=== PATIENT | female | born 1950 | race Caucasian/White ===

== ENCOUNTER → 2019-06-22 | Outpatient (CLI) | payer OTHER ==
[~2019-06-22] VITALS: Ht 167.6 cm; Wt 124.3 kg
[~2019-06-22] MED LIST: ASPIR 8181 MG PO; LEVOXYL175 MCG PO; LIPITOR 20 MG T20 M1 PO; MAXZIDE-25 MG1 EACH PO; METFORMIN HCL500 MG PO; NAPROSYN500 MG PO; NEURONTIN 300300 M1 PO; NOVOLOG100 UNIT/1 SUBQ; PRILOSEC OTC20 MG PO; QUINU10 PD PO; TRESIBA FL100 UNIT/1 SUBQ; TYLENOL PM EX-1 EACH PO; VICTOZA0.6 MG/0.1 SUBQ; VITAMIN D-32000 UNIT PO
[2019-06-22 09:21] LABS: HEMATOCRIT 40.5 % (37.0-47.0); HEMOGLOBIN 12.8 gm/dL (12.0-15.0); MCH 27.6 pg (26.0-34.0); MCHC 31.7 g/dL (28.0-37.0); MCV 87.1 fL (80.0-100.0); RBC 4.65 mil/uL (4.20-5.00); RDW 16.4 % (10.5-14.5); WBC 9.6 thou/uL (4.0-11.0)
[2019-06-22 09:25] LABS: URINE BILIRUBIN NEGATIVE (Negative); URINE BLOOD TRACE (Negative); URINE CLARITY CLEAR; URINE COLOR YELLOW; URINE GLUCOSE-RANDOM* NEGATIVE (Negative); URINE KETONES NEGATIVE (Negative); URINE LEUKOCYTES-REFLEX 1+ (Negative); URINE NITRITE-REFLEX POSITIVE (Negative); URINE PROTEIN (DIPSTICK) NEGATIVE (Negative); URINE SPECIFIC GRAVITY 1.015 (1.005-1.035); URINE UROBILINOGEN 0.2 E.U./dl (0.2-1.0)
[2019-06-22 09:31] LABS: SQUAMOUS 0-3 Few /LPF (0-3)
[2019-06-22 09:32] LABS: BACTERIA-REFLEX >30 Many /HPF (None Seen); CASTS None Seen /LPF (None Seen); CRYSTALS None Seen /LPF (None Seen); PROTIME 10.3 Seconds (9.3-11.4); URINE RBC None Seen /HPF (0-2); URINE WBC-REFLEX 6-15 Few /HPF (0-5)
[2019-06-22 09:33] LABS: ALBUMIN 3.6 g/dL (3.4-5.0); CALCIUM 9.2 mg/dL (8.5-10.1); CREATININE 1.2 mg/dL (0.6-1.0); POTASSIUM 4.6 mmol/L (3.5-5.1)
[2019-06-23 01:10] LABS: GLYCOHEMOGLOBIN (HGB A1C) 7.7 % (4.8-5.6)
--- NOTE | 2019-06-24 13:26 | EKG ---
[address] [place] [address] ELECTROCARDIOGRAM REPORT Name: NOEMÍ LEMON Room #: PRE IN ..#: [id number] Admission: Attend Phys: Roby Velásquez MD Discharge: Date of : 52 Report #: [id number] THIS REPORT FOR: //name// [facility] Test Date: 2019-06-22 Test Time: 08:54:43 Pat Name: NOEMÍTAMAR LEMON Department: Room: Gender: F Manager Baby: Ana Lilia MARIN : 1950 Requested By: Roby Velásquez Order Number: [id number] MD: Timmy Power Measurements Intervals [place] Rate: 91 P: 64 KS: 178 QRS: -39 QRSD: 120 T: 58 QT: 385 QTc: 474 Interpretive Statements Sinus rhythm Nonspecific IVCD with LAD Left ventricular hypertrophy Anterior Q waves, possibly due to LVH No previous ECG available for comparison Electronically Signed On 06-24-2019 13:26:05 CDT by Timmy Power [email or web address] <ELECTRONICALLY SIGNED> By: Timmy Power MD 06/24/19 1326 D: [id number] Timmy Power MD /GOLDY
[2019-06-29 11:32] VITALS: BP 114/67
== END | disposition home or self-care (01) ==
LOC: PRE 08:00 → TBA 08:00 → PAC 12:30 → PRE 06-29 08:11 → TBA 06-29 10:15 → PRE 06-29 10:15 → PAC 06-29 12:30 → EDSTATUS 06-29 13:03 → PRE 06-29 13:32
PROVIDERS: Orthopaedic Surgery
DX: M17.12 Unilateral primary osteoarthritis, left knee (principal); M25.562 Pain in left knee; I10 Essential (primary) hypertension; E78.5 Hyperlipidemia, unspecified; E11.9 Type 2 diabetes mellitus without complications; K21.9 Gastro-esophageal reflux disease without esophagitis; Z79.4 Long term (current) use of insulin; Z79.899 Other long term (current) drug therapy; Z85.850 Personal history of malignant neoplasm of thyroid; Z53.8 Procedure and treatment not carried out for other reasons; Z91.040 Latex allergy status; Z79.01 Long term (current) use of anticoagulants; Z98.890 Other specified postprocedural states
CPT/HCPCS: 50010

== ENCOUNTER 2019-07-12 05:46 | Inpatient (IN) | payer OTHER ==
[~2019-07-12] VITALS: Ht 167.6 cm; Wt 123.4 kg
[2019-07-12] VITALS (9 sets, daily range): BP systolic 120–155; BP diastolic 62–75
[~2019-07-12 05:46] MED LIST changes: -ASPIR 8181 MG PO; -NEURONTIN 300300 M1 PO
--- NOTE | 2019-07-12 18:24 | NUR ---
Pt came to unit from PACU approx 1045. Post-op left total knee. Pain controlled with prn pain meds. ESHA hose and SCD in place. Polar pack in place. Pt worked with physical therapy today. Pt home insulin taken down to pharmacy for verification. Pt states she took her home novolog for lunch. Education given. Pt home meds in EMar. Fluids and antibiotics infusing. Hospital doctor consulted. Weight bearing as tolerated. Call light within reach. Will continue to monitor.
--- NOTE | 2019-07-13 02:44 | NUR ---
ASSESSMENT COMPLETED AT THE START OF SHIFT. POST OP DAY ZERO S/P L TKR. PT HAS POLAR MAGALYS, HUSSAIN AND TEDS IN PLACE. PT ABLE TO GET TO THE BSC WITH ASSIST X 1. VOIDING OK. PT C/O SOME HEADACHE AND SORE THROAT AT BOUT BEDTIME. HS MEDS GIVEN INCLUDING ANALGESICS AND PT APPEARS TO HAVE RECEIVED SOME RELIEF. FEBRILE-THEREFORE GIVEN SOME TYLENOL. PT REMAINS ON ROOM AIR. ENCOURAGED TO USE I/S AVAILABLE BY BEDSIDE.CALLS WITH NEEDS. WILL CONTINUE WITH POC TILL EOS.
[2019-07-13 05:27] VITALS: BP 91/49
[2019-07-13 05:28] LABS: HEMATOCRIT 32.6 % (37.0-47.0); HEMOGLOBIN 10.3 gm/dL (12.0-15.0); MCH 28.1 pg (26.0-34.0); MCHC 31.7 g/dL (28.0-37.0); MCV 88.5 fL (80.0-100.0); RBC 3.68 mil/uL (4.20-5.00); RDW 16.3 % (10.5-14.5); WBC 9.1 thou/uL (4.0-11.0)
--- NOTE | 2019-07-13 14:41 | NUR ---
INITIAL ASSESSMENT: Pt evaluated for d/c planning needs. Reviewed chart and spoke with PT, pt and nurse. Pt is alert and oriented. Pt lives alone in house and was independent with ADL's prior to admission to the hospital. Pt has cane at home, and has not had home health in the past. Pt plans on staying with her SO on d/c from hospital and has outpatient PT arranged to begin on Thursday. Pt requires walker for home use. Faxed order for walker to [facility] and they will deliver prior to d/c. Will remain available to assist as needed.
[2019-07-13] MEDS ORDERED: ASPIR 8181 MG PO (14:53)
[2019-07-13] MEDS ORDERED: NEURONTIN 300300 M1 PO (14:53)
[2019-07-13 18:40] VITALS: BP 113/55
[2019-07-13 20:23] VITALS: BP 101/54
[2019-07-14 04:14] VITALS: BP 116/50
[2019-07-14 05:31] LABS: HEMATOCRIT 31.2 % (37.0-47.0); HEMOGLOBIN 9.8 gm/dL (12.0-15.0); MCH 27.7 pg (26.0-34.0); MCHC 31.3 g/dL (28.0-37.0); MCV 88.3 fL (80.0-100.0); RBC 3.53 mil/uL (4.20-5.00); RDW 16.2 % (10.5-14.5); WBC 9.4 thou/uL (4.0-11.0)
--- NOTE | 2019-07-14 05:47 | NUR ---
PT IS A/O X4.PT IS UP TO BSC WITH SBA WITH WALKER AND GAIT BELT.PT WANTS TO SHOWER BEFORE GOING HOME.[facility] REMOVED YESTERDAY AND POLAR PACK AND PREVENA STILL IN PLACE.PAIN MGT WITH HYDROCODONE.CONTINUE POC
[2019-07-14 08:00] VITALS: BP 108/72
--- NOTE | 2019-07-14 11:14 | NUR ---
Nutrition: Assessed d/t BMI >40 (43.9 kg/m2). Morbid obesity, class 3 high risk. S/p left TKR with hx osteoarthritis, DM II, HTN, HLD. Pt has been following a low carb diet for years and understands it very well. States she reduced her A1c from 8.8% to 7.6% in 3 months to allow for her surgery. Is unhappy with menus - stating way too many carbs. Pt is not ordered on a diabetic diet. RD helped pt to modify upcoming lunch to cut carbs and added in double portion of green beans. Pt is on scheduled Humalog (different units per meal) and metformin BID. At home, pt also takes Victoza and Tradjenta. Pt felt well informed about healthy eating recommendations and now understands she can order alternative menu items to help her diet and keep BGs lower. Discharging today, otherwise would recommend changing to low kcal, diabetic diet.
[2019-07-14 12:12] VITALS: BP 108/72
[2019-07-14 13:25] VITALS: BP 108/72
[2019-07-14 13:32] VITALS: BP 108/72
--- NOTE | 2019-07-14 13:44 | NUR ---
DISCHARGE PAPERS GONE OVER WITH PATIENT,SIGNED AND COPY IN CHART. IV ACSESS DCD. RX'S GIVEN TO PATIENT WILL SEND HOME MEDS WITH PATIENT HER BOYFRIEND WILL PICK HER UP AT 5:00- 5:30 .
[2019-07-14 17:47] VITALS: BP 108/72
--- NOTE | 2019-07-14 17:57 | NUR ---
PT DISCHARGED AT THIS TIME ALERT XS 4 NO PAIN OR RESP DISTRESS AT THIS TIME. ALL BELONGINGS PACKED AND SENT WITH PATIENT.
--- NOTE | 2019-07-18 09:43 | O ---
[facility] [place] [address] OPERATIVE REPORT Name: NOEMÍ LEMON Room #: 448-P [facility] IN M.R.#: [id number] Admission: 07/12/19 Attend Phys: Roby Velásquez MD Discharge: 07/14/19 Date of : 52 Report #: [id number] THIS REPORT FOR: //name// CC: BLAYNE GUTIERREZ Physician staff Roby Velásquez DATE OF SERVICE: 07/12/2019 PREOPERATIVE DIAGNOSES: 1. Left knee osteoarthritis. 2. Morbid obesity with a body mass index of 44. POSTOPERATIVE DIAGNOSES: 1. Left knee osteoarthritis. 2. Morbid obesity with a body mass index of 44. PROCEDURE: Left total knee arthroplasty using Navio robotic assistance. SURGEON: Roby Velásquez MD. COLLET MAKING MACHINE OPERATOR: Josie Sales PA-C INDICATIONS FOR COLLET MAKING MACHINE OPERATOR: Throughout the case, extensive retraction and manipulation of the knee was required. This was afforded to me by my assistant plant manager. ANESTHESIA: LMA with an adductor canal block. IMPLANTS: [employer]hew size 5 narrow Legion cobalt chrome posterior stabilized femur, size 3 tibia, size 12 polyethylene and size 32 patella. TOURNIQUET TIME: 65 minutes. ESTIMATED BLOOD LOSS: 25 mL. COMPLICATIONS: None. SPECIMENS: None. CONDITION UPON LEAVING THE OPERATING ROOM: Stable. INDICATIONS FOR PROCEDURE: The patient is a 68-year-old female with severe left knee osteoarthritis. She has failed conservative measures for this and after discussion with her, she elected for left total knee arthroplasty. DESCRIPTION OF PROCEDURE: Risks, benefits, alternatives, complications were [facility] [address] [place] [address] OPERATIVE REPORT Name: LEMONNOEMÍ Room #: 448-P [facility] IN M.R.#: [id number] Admission: 07/12/19 Attend Phys: Roby Velásquez MD Discharge: 07/14/19 Date of : 52 Report #: [id number] discussed in detail with the patient including but not limited to risk of anesthesia, risk of damage to nerves, arteries, blood vessels, risk for infection, bleeding, risk for continued knee pain and need for reoperation. Informed consent was obtained from the patient. Left knee was appropriately marked in the preoperative holding area. IV Ancef was given for preoperative antibiotics. Adductor canal block was placed by Anesthesia. She was brought to the operating room and placed in supine position on operating room table. LMA anesthesia was induced without complication. Tourniquet was placed on the left thigh. Left lower extremity was prepped and draped in normal sterile fashion. Timeout was performed properly identifying the patient and procedure as well as the instrumentation and implants. All in the operating room were in agreement. Left lower extremity was exsanguinated, tourniquet was inflated. Tourniquet time was 65 minutes. Standard midline approach to knee was made with 10 blade through the skin. Dissection was taken down sharply to the fascia and deep flaps were developed medially and laterally. Fresh 10 blade was used to make a medial parapatellar arthrotomy and the knee was inspected. There was severe medial compartment osteoarthritis with moderate patellofemoral and lateral compartment osteoarthritis. ACL and PCL were removed sharply. Reference pins were placed in the femur and the tibia. The knee was then digitally mapped using the SMR SITE robotic system. We sized a size 5 femur with a size 3 tibia and an 11 polyethylene spacer. After acceptance of the intraoperative plan, the distal femoral cut was made with a Navio gerhard. The 4-in-1 cutting block was placed and the anterior, posterior and chamfer cuts were made. Attention was then turned to the tibia. The remainder of the menisci removed with Bovie cautery. The tibial resection guide was pinned in place using a Navio for placement and the tibial resection was made. Flexion and extension gaps were then checked and found to be tight medially, both in flexion and extension. Medial osteophytes were removed from the tibial plateau and this balanced the knee well. Tibia was sized, found to be a size 3. A size 3 tibial trial was placed, pinned and punched. A size 5 femoral trial was placed and the box cut was made. This was then trialed with a size 11 and then a size 12 polyethylene demonstrated a millimeter to millimeter and a half laxity medially and laterally throughout range of motion. A 9 mm was then resected from the posterior surface of the patella and a size 32 patellar trial button was placed. Knee was taken through range of motion, found to be stable, found to have good patellar tracking. After this, trial components were removed. Bony ends were thoroughly irrigated with normal saline. Final size 3 tibia, size 5 narrow cobalt chrome Legion posterior stabilized femur and a size 32 patella were cemented in place using standard cementation techniques. While the cement cured, a periarticular injection consisting of morphine, ropivacaine, epinephrine and Toradol was placed around the knee joint capsule. After the cement cured, the tourniquet was deflated. Hemostasis was obtained with Bovie cautery. Final size 12 polyethylene was placed. A gram of vancomycin was placed deep in the joint. Fascia was closed with 0 Vicryl, skin was closed with 2-0 Vicryl, skin staple, [address] [address] OPERATIVE REPORT Name: NOEMÍ LEMNO Room #: 448-P [facility] IN M.R.#: [id number] Admission: 07/12/19 Attend Phys: Roby Velásquez MD Discharge: 07/14/19 Date of : 52 Report #: [id number] and a HUSSAIN dressing was applied. The patient tolerated this procedure well and went to recovery room under care of anesthesia postoperatively. <ELECTRONICALLY SIGNED> By: Roby Velásquez MD 07/18/19 0943 [id number] Roby Velásquez MD /nt
== END 2019-07-14 17:59 | disposition home or self-care (01) | DRG 470 ==
LOC: TBA 05:46 → 4S 05:46 → PRE 12:56 → 4S 07-14 17:59
PROVIDERS: ADMIT Orthopaedic Surgery
DX: M17.12 Unilateral primary osteoarthritis, left knee (principal); Z68.41 Body mass index [BMI] 40.0-44.9, adult; I10 Essential (primary) hypertension; K21.9 Gastro-esophageal reflux disease without esophagitis; E78.00 Pure hypercholesterolemia, unspecified; E11.9 Type 2 diabetes mellitus without complications; E66.01 Morbid (severe) obesity due to excess calories; E78.5 Hyperlipidemia, unspecified; Z79.82 Long term (current) use of aspirin; Z79.899 Other long term (current) drug therapy; Z91.040 Latex allergy status; Z90.710 Acquired absence of both cervix and uterus
CPT/HCPCS: 10102; 50010; 50101; 50415; 50954; 51225; 51412; 53000; 53078; 53364; 54118; 56527; 56528; 57095; 57103; 57110; 57127; 57180; 62110; 62900; 64039; 70005